=== PATIENT | female | born 2000 | race Caucasian/White ===

== ENCOUNTER 2019-05-28 18:04 | Emergency (ER) | payer MEDICAID, OTHER ==
[~2019-05-28] VITALS: Ht 162.6 cm; Wt 81.6 kg
[~2019-05-28 18:04] MED LIST: AMOX500C2 PO; TRAM-42 PO
--- OUTSIDE RECORDS SUMMARY | 2019-05-28 18:15 | XMS REPORT | Continuity of Care Document ---
Author Organization Unknown Address Unknown Phone Unavailable Allergies There is no data. Medications There is no data. Problems There is no data. Procedures There is no data. Results There is no data. Encounters ACCT No. Visit Date/Time Discharge Status Pt. Type Provider Facility Loc./Unit Complaint [id number] 03/23/2019 14:40:00 03/23/2019 23:59:59 CLS [facility] [id number] 09/20/2016 12:07:12 09/20/2016 23:59:59 CLS Outpatient Monica Jefferson [id number] 09/01/2016 10:51:21 09/01/2016 23:59:59 CLS Outpatient Monica Jefferson [id number] 08/01/2016 14:43:57 08/01/2016 23:59:59 CLS Outpatient Monica Jefferson [id number] 07/11/2016 11:54:57 07/11/2016 23:59:59 CLS Outpatient Monica Jefferson [id number] 06/16/2016 16:30:41 06/16/2016 23:59:59 CLS Outpatient Claudia Melchor [id number] 06/15/2016 16:10:09 06/15/2016 23:59:59 CLS Outpatient Claudia Melchor [id number] 06/14/2016 15:36:14 06/14/2016 23:59:59 CLS Outpatient Monica Jefferson [id number] 04/28/2016 11:27:29 04/28/2016 23:59:59 CLS Outpatient Monica Jefferson [id number] 11/27/2015 11:16:06 11/27/2015 23:59:59 CLS Outpatient Felicia Golden [id number] 11/13/2015 15:16:49 11/13/2015 23:59:59 CLS Outpatient Felicia Golden [id number] 10/05/2015 14:26:43 10/05/2015 23:59:59 CLS Outpatient Felicia Golden [id number] 08/03/2015 15:13:54 08/03/2015 23:59:59 CLS Outpatient Felicia Golden Claudia [id number] 07/13/2015 09:20:34 07/13/2015 23:59:59 CLS Outpatient Felicia Golden Claudia [id number] 06/25/2015 11:58:45 06/25/2015 23:59:59 CLS Outpatient Narendra Zafar [id number] 09/01/2014 14:01:39 09/01/2014 23:59:59 CLS Outpatient Felicia Golden Claudia [id number] 07/29/2014 16:36:35 07/29/2014 23:59:59 CLS Outpatient Dulce Goldendonovan Taylor [id number] 06/25/2014 15:05:42 06/25/2014 23:59:59 CLS Outpatient Felicia Golden Claudia [id number] 12/30/2013 11:43:32 12/30/2013 23:59:59 CLS Outpatient Narendra Zafar
[2019-05-28] MEDS ORDERED: HYOS0.1283 SL (18:45)
--- NOTE | 2019-05-28 18:45 | ED Pediatric Illness ---
HPI-Pediatric Illness General Chief Complaint: Abdominal/GI Problems Stated Complaint: ABD CRAMPING Nursing Triage Note: Patient ambulatory to ER Triage room with complaint of abdominal/ pelvic cramping. Patient states her control device in the left arm is about ready to and it is causing her increased cramping. She states "I just want someone to take it out". Patient states she called the ObGYN in [place] that put it in but they told her they could not get her in for two weeks. Source: patient Exam Limitations: no limitations History of Present Illness Date Seen by Provider: May 28, 2019 Time Seen by Provider: 18:43 Initial Comments 18-year-old female who presents to the emergency room with complaints of menstrual cramping. She reports that she is currently on her menstrual cycle and has a implant control device in her left arm that is ready to and is causing her to have increased cramping. She has an appointment in 2 weeks to have the device removed but would like it out tonight. He reports not wanting to wait until her appointment. Allergies and Home Medications Allergies Coded Allergies: No Known Drug Allergies (Unverified , 06/20/18) Home Medications Hyoscyamine Sulfate 0.125 Mg Tab.subl, 0.125 MG SL Q4H Prescribed by: YORDAN LINDO on 05/28/19 [id number] Patient Home Medication List Home Medication List Reviewed: Yes Review of Systems Review of Systems Constitutional: see HPI; No chills, No fever Gastrointestinal: see HPI, other (menstrual cramps) LMP: May 28, 2019 All Other Systems Reviewed Negative Unless Noted: Yes PMH-Pediatrics Recent Foreign Travel: No Contact w/other who traveled: No Recent Infectious Disease Expo: No Hospitalization with Isolation: Denies Seasonal Allergies: No Respiratory Disorders: Asthma Musculoskeletal Disorders: Fractures Physical Exam-Pediatric Physical Exam Vital Signs - First Documented 05/28/19 18:13 Temp 97.2 Pulse 82 Resp 18 B/P (MAP) 131/77 Pulse Ox 99 O2 Delivery Room Air Capillary Refill : Height, Weight, BMI Height: 5'4.00" Weight: 180lbs. oz. 81.400131xk; 28.12 BMI Method:Stated General Appearance: no acute distress, see HPI Respiratory: chest non-tender, lungs clear, normal breath sounds, no respiratory distress, no accessory muscle use Cardiovascular: normal peripheral pulses, regular rate, rhythm, no edema, no gallop, no JVD, no murmur Gastrointestinal: normal bowel sounds, non tender, soft, no organomegaly, no pulsatile mass Extremities: normal capillary refill Neurologic/Psychiatric: alert, normal mood/affect, oriented x 3 Skin: normal color, warm/dry Progress/Results/Core Measures Results/Orders Vital Signs/I&O 05/28/19 05/28/19 18:13 19:00 Temp 97.2 97.2 Pulse 82 82 Resp 18 18 B/P (MAP) 131/77 Pulse Ox 99 99 O2 Delivery Room Air Room Air Progress Progress Note : Time: 18:44 Progress Note I have seen and evaluated the patient. 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 She agrees with plan of care, plans for discharge, return precautions were given. Departure Impression Primary Impression: Menstrual cramp Disposition: 01 HOME, SELF-CARE Condition: Stable/Unchanged Departure-Patient Inst. Decision time for Depature: 18:44 Referrals: [facility] (PCP/Family) Primary Care Physician Patient Instructions: Menstrual Cramps (DC) Add. Discharge Instructions: Take medication as directed. Keep your appointment as scheduled to have your nexplanon implant removed. Call tomorrow morning to see if they can move her appointment up sooner. Return back to the emergency room for worsening symptoms or concerns as needed. All discharge instructions reviewed with patient and/or family. Voiced understanding. Scripts Hyoscyamine Sulfate (Levsin-Sl) 0.125 Mg Tab.subl 0.125 MG SL Q4H, #14 TAB 0 Refills Prov: YORDAN LINDO 05/28/19 YORDAN LINDO May 28, 2019 18:45
== END 2019-05-28 19:01 | disposition home or self-care (01) ==
LOC: EDUNIT# 18:04 → ER 18:06
DX: N94.6 Dysmenorrhea, unspecified (principal); J45.909 Unspecified asthma, uncomplicated
CPT/HCPCS: 99282